=== PATIENT | female | born 1960 | race Caucasian/White ===

== ENCOUNTER 2019-02-07 11:01 | Day surgery (SDC) | payer BC ==
[~2019-02-07] VITALS: Ht 162.6 cm; Wt 86.5 kg
[~2019-02-07 11:01] MED LIST: CARD60TA3 PO; EPIP0.3I2 IM; ESTR3TA PO; HYDR25TAB PO
[2019-02-07] MEDS ORDERED: PHENAZOPYRIDINE 100 MG TAB PO ONE (11:15)
[2019-02-07] MEDS ORDERED: LR 1,000 ML IV ONE (11:15)
[2019-02-07] MEDS ORDERED: SCOPOLAMINE 1MG TRANSDERMAL PATCH As Ordered ONE (11:47)
[2019-02-07] MEDS ORDERED: SCOPOLAMINE 1MG TRANSDERMAL PATCH TOP ONE (12:00)
[2019-02-07] MEDS ORDERED: PROPOFOL 200 MG/20 ML VIAL As Ordered ONE ×3 (12:15→15:20)
[2019-02-07] MEDS ORDERED: LIDOCAINE 2% INJ 100 MG/5 ML SDV (FOR ANES.) As Ordered ONE (12:16)
[2019-02-07] MEDS ORDERED: dexameTHASONE 4 MG/ML 1ML VIAL (J1100) As Ordered ONE (12:16)
[2019-02-07] MEDS ORDERED: ONDANSETRON 4MG/2ML VIAL (J2405) As Ordered ONE (12:16)
[2019-02-07] MEDS ORDERED: KETOROLAC 60 MG/2 ML VIAL (J1885) As Ordered ONE (12:16)
[2019-02-07] MEDS ORDERED: fentaNYL 100 MCG/2 ML INJECTION (J3010) As Ordered ONE (12:16)
[2019-02-07] MEDS ORDERED: MIDAZOLAM INJ 2 MG/2 ML VIAL (J2250) As Ordered ONE (12:17)
[2019-02-07] MEDS ORDERED: ROCURONIUM BROMIDE 50 MG/5 ML VIAL As Ordered ONE ×2 (12:41→14:21)
[2019-02-07] MEDS ORDERED: KETAMINE HCL 200 MG/20 ML VIAL As Ordered ONE (12:45)
[2019-02-07] MEDS ORDERED: VASOPRESSIN INJ 20 UNITS/ML VIAL As Ordered ONE (12:49)
[2019-02-07] MEDS ORDERED: ACETAMINOPHEN 1000MG 100ML IV BTL (OFIRMEV) (J0131 PER 10MG) As Ordered ONE (13:39)
[2019-02-07] MEDS ORDERED: SUGAMMADEX SODIUM 500 MG/5 ML VIAL (BRIDION) As Ordered ONE (13:39)
[2019-02-07] MEDS ORDERED: METHOCARBAMOL 1,000 MG/10 ML VIAL (J2800) As Ordered ONE (13:43)
[2019-02-07] MEDS ORDERED: PROPOFOL 500 MG/50 ML VIAL As Ordered ONE (14:25)
[2019-02-07] MEDS ORDERED: LR 1,000 ML IV SCH ×2 (16:30)
[2019-02-07] MEDS ORDERED: ONDANSETRON 4MG/2ML VIAL (J2405) IV PRN (16:30)
[2019-02-07] MEDS ORDERED: NORCO, ANEXSIA 5/325MG TABLET (HYDROcodone/ACETAMINOPHEN) PO PRN (16:30)
[2019-02-07] MEDS ORDERED: fentaNYL 100 MCG/2 ML INJECTION (J3010) IV PRN (16:30)
[2019-02-07] MEDS ORDERED: IBUPROFEN 600 MG TAB PO PRN ×2 (16:30→19:00)
--- NOTE | 2019-02-07 16:41 | RO ---
DATE OF PROCEDURE: 02/07/2019 PREOPERATIVE DIAGNOSIS AND INDICATION FOR SURGERY: Symptomatic prolapse with failed pessary. POSTOPERATIVE DIAGNOSIS: Symptomatic prolapse with failed pessary. PROCEDURE: Sacrospinous suspension with cystourethroscopy and anterior and posterior repair or perineorrhaphy as well. ANESTHESIA: General endotracheal anesthesia. SURGEON: Dr. Solano. DEVELOPMENT PLANNER: None. BRIEF DESCRIPTION OF PROCEDURE AND FINDINGS: Kalpana was brought to the operating room where sufficient general endotracheal anesthesia was induced and she was prepped, draped and positioned in the usual sterile fashion with the bladder emptied and the patient had a supracervical hysterectomy and did not really want any extra surgery so we planned to leave the cervix in place over the posterior fornix. A transverse incision was made after injection with some vasopressin. We then dissected laterally to the uterosacral ligament and we also dissected the vagina away from the underlying rectum and a little bit laterally towards the cervix but of course could not get quite as far around because of the cervix being in the way. We then having dissected to the uterosacral ligament used the Anchorsure to place #2-0 Maxon suture. We had two sutures at each anchor so we only two anchors to get four suture in place. We then used the ibarra needle to place those four sutures, two posteriorly and two lateral anterior because we could not get full medial anterior. We closed the posterior incision and then brought up those Maxon sutures with a single throw and then on her cystourethroscopy we could see normal jets of urine with Pyridium dye coming through clearly on both ureters. We also could see that there were no green Maxon sutures within the bladder as would be expected in this case of course. There is no other evidence of bladder abnormality and the rest of throws and the Maxon were completed. We then went anteriorly and this patient has a urethrocele and a cystocele as well and this was only partially corrected the previous repair so we went ahead and injected vasopressin and then made a vertical midline incision and do an anterior repair and then also had some defect at the introitus posteriorly. 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 We dissected along the midline posteriorly, repaired the rectovaginal septum and then closed the skin over the space as typical of posterior repair as well and of course redeveloped the peritoneal body and reconnected to the rectovaginal septum. Having completed and anterior and posterior repair and the sacrospinous suspension and the cystourethroscopy the procedure was ended. Estimated blood loss for the procedure about 25 mL. Fluid replacement crystalloid. Complications: None. We did a rectal exam a the end of the case to confirm lack of injury to the rectum as well as of course having already done the cystourethroscopy. CONDITION AND DISPOSITION: Kalpana tolerated the procedure well and was recovering in the recovery room in good condition.
[2019-02-07] MEDS ORDERED: oxyCODONE 5MG TAB PO PRN (16:45)
[2019-02-07] MEDS ORDERED: oxyCODONE 5MG TAB PO ONE (16:45)
[2019-02-07] MEDS ORDERED: METOCLOPRAMIDE INJ 10MG/2ML VIAL (J2765) As Ordered ONE (18:42)
[2019-02-07 18:45] VITALS: BP 126/71
[2019-02-07] MEDS ORDERED: METOCLOPRAMIDE INJ 10MG/2ML VIAL (J2765) IV ONE (19:30)
== END 2019-02-07 17:14 | disposition home or self-care (01) ==
LOC: M SDC 11:01
PROVIDERS: ATTEND Obstetrics & Gynecology
DX: N81.4 Uterovaginal prolapse, unspecified (principal); Z79.899 Other long term (current) drug therapy; Z91.030 Bee allergy status
CPT/HCPCS: 57260; 57282; 88302; C1713; J0131; J0690; J1100; J1885; J2250; J2405; J2765; J2800; J3010